=== PATIENT | female | born 1960 | race Caucasian/White ===

== ENCOUNTER → 2024-12-24 11:41 | Outpatient (REF) | payer MEDICARE, OTHER, SELFPAY | LOC: RAD 11:41 | PROVIDERS: ATTENDING PHYSICIAN Student in an Organized Health Care Education/Training Program; FAMILY PHYSICIAN Internal Medicine | DX: D84.9 Immunodeficiency, unspecified (principal); R05.9 Cough, unspecified | CPT/HCPCS: 71046 ==